=== PATIENT | male | born 1945 | race Caucasian/White ===

== ENCOUNTER → 2017-10-24 | Day surgery (SDC) | payer MEDICARE ==
[~2017-10-24] MED LIST: BALANCED SALT SOLN OPHT IRRIG 15 ML BTL ONE; DEXAMETHASONE SOD PHOS 4 MG/ML VIAL IV PUSH ONE; MOXIFLOXACIN 0.5% OPHT SOLN 3 ML BTL ONE; ONDANSETRON HCL 4 MG/2 ML VIAL IV PUSH ONE; PHENYLEPHRINE HCL 10% OPTH SOLN 5 ML BTL ONE; PROPOFOL 200 MG/20 ML AMP IV ONE; SODIUM CHLOR 0.9% 250 ML INJ 250 ML IV ONE; TETRACAINE 0.5% OPTH SOLN 4 ML BTL ONE; prednisoLONE ACETATE 1% OPHT SUSP 5 ML BTL ONE
--- NOTE | 2017-10-30 05:59 | MP ---
cc: DUANE SANCHEZ MD DATE OF SURGERY 10/24/2017 PREOPERATIVE DIAGNOSIS Severe epiretinal membrane, retinal detachment, retinal tears right eye. POSTOPERATIVE DIAGNOSIS Severe epiretinal membrane, retinal detachment, retinal tears right eye. COMPLICATIONS None. BLOOD LOSS Less than 1 cc. PROCEDURE Pars plana vitrectomy, removal of epiretinal membrane/internal limiting membrane, retinal detachment repair, endolaser, air-fluid exchange, insertion of 18% SF6 gas right eye. INDICATION FOR PROCEDURE This is a delightful patient who presented with multiple retinal tears and retinal detachment which was originally stabilized with laser in the office. The patient also had worsening epiretinal membrane and elected for surgical correction. PROCEDURE NOTE After informed consent was obtained, the patient was brought to the operating room. General anesthesia was established. The right eye was prepped and draped in sterile fashion with Betadine in the conjunctival fornix. A three port pars plana vitrectomy was established with self-retaining infusion cannula. Core vitreous was evacuated and vitreous traction to the peripheral retina was relieved. The ERM/JANETT complex was highlighted with ICG and removed with Tyron ILM forceps. 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 The retina was reattached. An air-fluid exchange was carried out. The endolaser was applied. 18% SF6 gas was instilled. The trocars were removed and sclerotomies closed. Subconjunctival injections of Ancef and dexamethasone were given. He eye was patched with Tobramycin ointment. The patient was brought to the recovery room in stable condition and is to continue follow up with [facility] for his postoperative care. Duane Sanchez MD KW/SSB /6:56 PM /5:49 AM
== END | disposition home or self-care (01) ==
LOC: ESDC 07:41
PROVIDERS: ATTEND Ophthalmology
DX: H35.371 Puckering of macula, right eye (principal); H33.021 Retinal detachment with multiple breaks, right eye; H35.21 Other non-diabetic proliferative retinopathy, right eye
CPT/HCPCS: 00145; 67113; J1100; J2405; J3010; J7050